=== PATIENT | male | born 1965 | race Caucasian/White ===

== ENCOUNTER 2021-02-12 10:00 | Emergency (ER) | payer MEDICAID ==
[~2021-02-12] VITALS: Ht 180.3 cm; Wt 81.8 kg
[2021-02-12 10:06] VITALS: Ht 180.3 cm; Wt 81.8 kg
[2021-02-12] MEDS ORDERED: VOLTAREN75 MG PO (12:27)
[2021-02-12] MEDS ORDERED: BACLOFEN20 M1 PO (12:27)
[2021-02-12] MEDS ORDERED: TYLENOL W/CODEI1 TAB PO (12:27)
[2021-02-12 13:02] VITALS: BP 146/71
== END 2021-02-12 13:03 | disposition home or self-care (01) ==
LOC: D.ER 10:00
DX: M51.26 Other intervertebral disc displacement, lumbar region (principal)